=== PATIENT | female | born 1955 | race Caucasian/White ===

== ENCOUNTER → 2017-01-07 | Outpatient (REF) | payer MEDICARE ==
[~2017-01-07] MED LIST: ACET-654 PO; CIPR-250 PO; HYDR-3713 PO; LISI20TA3 PO; NEUR100C PO; NEUR300C PO; POTA10CA PO; PRAV40TA2 PO; SYNT150T PO; VITA100066 PO; VITA200015 PO
[2017-01-07 13:25] LABS: MEAN CORPUSCULAR HEMOGLOBIN 32.3 pg (27.0-33.0); MEAN CORPUSCULAR HGB CONC 32.9 g/dl (32.0-36.5); MEAN CORPUSCULAR VOLUME 98.2 fl (80.0-96.0); RED CELL DISTRIBUTION WIDTH 12.4 % (11.5-14.5); WHITE BLOOD COUNT 7.6 K/mm3 (4.0-10.0)
[2017-01-07 13:47] LABS: ALBUMIN 3.5 GM/DL (3.2-5.2); ALKALINE PHOSPHATASE 74 U/L (45-117); ALT/SGPT 117 U/L (12-78); ANION GAP 10 MEQ/L (8-16); AST/SGOT 56 U/L (15-37); BILIRUBIN,TOTAL 0.4 MG/DL (0.2-1.0); BLOOD UREA NITROGEN 11 MG/DL (7-18); CALCIUM LEVEL 9.2 MG/DL (8.8-10.2); CARBON DIOXIDE LEVEL 25 MEQ/L (21-32); CHLORIDE LEVEL 105 MEQ/L (98-107); CHOLESTEROL LEVEL 242 MG/DL (<200); CREATININE FOR GFR 0.65 MG/DL (0.55-1.02); GLOMERULAR FILTRATION RATE > 60.0 (>45); GLUCOSE, FASTING 96 MG/DL (80-110); POTASSIUM SERUM 4.1 MEQ/L (3.5-5.1); SODIUM LEVEL 140 MEQ/L (136-145); TOTAL PROTEIN 7.9 GM/DL (6.4-8.2); TRIGLYCERIDES LEVEL 158 MG/DL (<150)
== END ==
LOC: M LABDRAW1 12:29
PROVIDERS: ATTEND Nurse Practitioner Family
DX: E78.5 Hyperlipidemia, unspecified (principal); I10 Essential (primary) hypertension; E55.9 Vitamin D deficiency, unspecified

== ENCOUNTER → 2017-01-27 | Outpatient (CLI) | payer MEDICARE ==
--- NOTE | 2017-01-27 12:36 | REP ---
Bilateral lower extremity Duplex Doppler venous ultrasound: Real time compression and duplex Doppler interrogation of the bilateral lower extremity deep venous system is performed. Bilaterally, the common femoral, superficial femoral and popliteal veins are fully compressible with transducer pressure and demonstrate normal spontaneous and phasic flow, without evidence of deep venous thrombosis. Impression: No evidence of deep venous thrombosis of the bilateral lower extremity femoral popliteal venous system. Right popliteal cyst measures 4.0 x 1.5 x 2.3 cm. Signed by Sourav Diggs MD 01/27/2017 12:27 P
== END ==
LOC: M RAD 11:46
PROVIDERS: ATTEND Nurse Practitioner Family
DX: R60.0 Localized edema (principal)

== ENCOUNTER → 2017-02-10 | Outpatient (CLI) | payer MEDICARE ==
--- NOTE | 2017-02-10 08:38 | REP ---
Right upper quadrant sonography: History: Elevated liver function studies. Comparison study: January 07, 2012. Findings: Scanning through the right upper quadrant of the abdomen demonstrates a normal sized, thin-walled gallbladder without evidence of stone or polyp. Common bile duct is normal measuring 0.5 cm in greatest diameter. No focal liver lesion is seen. Liver size is normal. No pancreatic abnormality is observed. No right renal abnormality is seen. There is no evidence of ascites. The right kidney measures 13.4 x 6.4 x 5.3 cm. Impression: Negative right upper quadrant sonography. Signed by Rakesh Cordova MD 02/10/2017 08:29 A
== END ==
LOC: M RAD 06:24
PROVIDERS: ATTEND Internal Medicine Cardiovascular Disease
DX: R94.5 Abnormal results of liver function studies (principal)

== ENCOUNTER → 2017-02-22 | Outpatient (REF) | payer MEDICARE ==
[2017-02-24 10:11] LABS: HEPATITIS B SURFACE ANTIBODY POSITIVE (POSITIVE)
[2017-02-25 10:16] LABS: ALT 127 IU/L (0-40); FIBROSIS STAGE F1-F2 (.); GGT 119 IU/L (0-60); HAPTOGLOBIN 136 mg/dL (34-200); NECROINFLAM SCORE 0.67 (0.00-0.17); NECROINFLAMM GRADE A3-Severe activity (.); TOTAL BILIRUBIN 0.2 mg/dL (0.0-1.2)
== END ==
LOC: M LABDRAW1 15:32
PROVIDERS: ATTEND Nurse Practitioner Family
DX: B18.2 Chronic viral hepatitis C (principal); B16.9 Acute hepatitis B without delta-agent and without hepatic coma; B15.9 Hepatitis A without hepatic coma

== ENCOUNTER → 2017-03-10 | Outpatient (REF) | payer MEDICARE, MEDICAID | LOC: M LABDRAW1 15:51 | PROVIDERS: ATTEND Internal Medicine Infectious Disease | DX: B18.2 Chronic viral hepatitis C (principal) ==

== ENCOUNTER → 2017-03-25 | Outpatient (REF) | payer MEDICARE, MEDICAID ==
[2017-03-25 14:32] LABS: FREE T4 1.79 NG/DL (0.76-1.46)
== END ==
LOC: M LABDRAW1 12:54
PROVIDERS: ATTEND Internal Medicine Endocrinology, Diabetes & Metabolism
DX: E06.3 Autoimmune thyroiditis (principal)

== ENCOUNTER → 2017-04-22 | Outpatient (REF) | payer MEDICAID, MEDICARE ==
[~2017-04-22] MED LIST changes: -ACET-654 PO; +ACET1TAB17 PO
[2017-04-22 12:25] LABS: ALBUMIN 3.6 GM/DL (3.2-5.2); ALBUMIN/GLOBULIN RATIO 0.82 (1.00-1.93); BILIRUBIN,DIRECT 0.2 MG/DL (0.0-0.2); BILIRUBIN,TOTAL 0.5 MG/DL (0.2-1.0)
[2017-04-26 14:10] LABS: HEPATITIS C QUANTITATION HCV Not Detected IU/mL (.)
== END ==
LOC: M SFHCPLAZ 10:21
PROVIDERS: ATTEND Internal Medicine Infectious Disease
DX: B18.2 Chronic viral hepatitis C (principal)

== ENCOUNTER → 2017-06-17 | Outpatient (CLI) | payer MEDICAID, MEDICARE ==
--- NOTE | 2017-06-17 15:04 | REP ---
Left lower extremity Duplex Doppler venous ultrasound: Real time compression and duplex Doppler interrogation of the left lower extremity deep venous system is performed. The left common femoral, superficial femoral and popliteal veins are fully compressible with transducer pressure and demonstrate normal spontaneous and phasic flow, without evidence of deep venous thrombosis. Impression: No evidence of deep venous thrombosis of the left lower extremity femoral popliteal venous system. Incidental note is made of a Toney's cyst measuring 3.2 x 1.2 x 1.5 cm. Signed by Sourav Diggs MD 06/17/2017 02:57 P
== END ==
LOC: M RAD 14:22
PROVIDERS: ATTEND Orthopaedic Surgery
DX: M71.22 Synovial cyst of popliteal space [Baker], left knee (principal)

== ENCOUNTER → 2017-08-19 | Outpatient (REF) | payer MEDICARE, MEDICAID | LOC: M LABDRAW1 10:36 | PROVIDERS: ATTEND Neurological Surgery | DX: E66.9 Obesity, unspecified (principal) ==

== ENCOUNTER → 2018-01-21 | Outpatient (REF) | payer MEDICARE, MEDICAID ==
[2018-01-21 14:11] LABS: HEMATOCRIT 38.8 % (36.0-47.0); HEMOGLOBIN 12.7 g/dl (12.0-15.5); MEAN CORPUSCULAR HEMOGLOBIN 31.1 pg (27.0-33.0); MEAN CORPUSCULAR HGB CONC 32.7 g/dl (32.0-36.5); MEAN CORPUSCULAR VOLUME 95.1 fl (80.0-96.0); PLATELET COUNT, AUTOMATED 336 10^3/uL (150-450); RED BLOOD COUNT 4.08 10^6/uL (4.00-5.40); RED CELL DISTRIBUTION WIDTH 12.6 % (11.5-14.5); WHITE BLOOD COUNT 6.9 10^3/uL (4.0-10.0)
[2018-01-21 14:23] LABS: TOTAL 25(OH) VITAMIN D 31.4 NG/ML (30.0-100.0)
[2018-01-21 14:29] LABS: ALBUMIN 3.9 GM/DL (3.2-5.2); ALBUMIN/GLOBULIN RATIO 0.91 (1.00-1.93); ALKALINE PHOSPHATASE 84 U/L (45-117); ALT/SGPT 24 U/L (12-78); ANION GAP 7 MEQ/L (8-16); AST/SGOT 16 U/L (7-37); BILIRUBIN,TOTAL 0.6 MG/DL (0.2-1.0); BLOOD UREA NITROGEN 15 MG/DL (7-18); CALCIUM LEVEL 9.1 MG/DL (8.8-10.2); CARBON DIOXIDE LEVEL 25 MEQ/L (21-32); CHLORIDE LEVEL 107 MEQ/L (98-107); CHOLESTEROL LEVEL 222 MG/DL (<200); CHOLESTEROL RISK RATIO 3.827 (<5); CPK CREATINE PHOSPHOKINASE 127 U/L (26-192); CREATININE FOR GFR 0.62 MG/DL (0.55-1.30); GLOMERULAR FILTRATION RATE > 60.0 (>45); GLUCOSE, FASTING 79 MG/DL (70-100); HDL CHOLESTEROL 58 MG/DL (>40); LDL CHOLESTEROL 128.6 MG/DL (<100); NON-HDL-C 164 MG/DL; POTASSIUM SERUM 4.1 MEQ/L (3.5-5.1); SODIUM LEVEL 139 MEQ/L (136-145); TOTAL PROTEIN 8.2 GM/DL (6.4-8.2); TRIGLYCERIDES LEVEL 177 MG/DL (<150)
== END ==
LOC: M LABDRAW1 11:24
DX: E55.9 Vitamin D deficiency, unspecified (principal); E78.00 Pure hypercholesterolemia, unspecified; I10 Essential (primary) hypertension
CPT/HCPCS: 82550

== ENCOUNTER → 2018-02-11 | Outpatient (REF) | payer MEDICARE, MEDICAID ==
[2018-02-11 16:42] LABS: ALBUMIN/GLOBULIN RATIO 0.91 (1.00-1.93); ALKALINE PHOSPHATASE 109 U/L (45-117); ALT/SGPT 24 U/L (12-78); AST/SGOT 15 U/L (7-37); BILIRUBIN,DIRECT 0.1 MG/DL (0.0-0.2); BILIRUBIN,TOTAL 0.5 MG/DL (0.2-1.0); TOTAL PROTEIN 8.4 GM/DL (6.4-8.2)
[2018-02-15 08:06] LABS: ALPHA 2-MACROGLOBULIN 239 mg/dL (110-276); ALT 19 IU/L (0-40); APOLIPOPROTEIN A-1 168 mg/dL (116-209); FIBROSIS SCORE 0.19 (0.00-0.21); GGT 32 IU/L (0-60); HAPTOGLOBIN 128 mg/dL (34-200); HEPATITIS C QUANTITATION HCV Not Detected IU/mL (.); NECROINFLAM SCORE 0.06 (0.00-0.17); NECROINFLAMM GRADE A0-No activity (.); TOTAL BILIRUBIN 0.3 mg/dL (0.0-1.2)
== END ==
LOC: M LABDRAW1 11:41
DX: B18.2 Chronic viral hepatitis C (principal)
CPT/HCPCS: 84460

== ENCOUNTER → 2018-03-25 | Outpatient (REF) | payer MEDICARE, MEDICAID | LOC: M LABDRAW1 13:14 | DX: E06.3 Autoimmune thyroiditis (principal) | CPT/HCPCS: 84443 ==

== ENCOUNTER → 2018-05-31 | Outpatient (REF) | payer MEDICARE, MEDICAID ==
[2018-05-31 11:53] LABS: HEMATOCRIT 39.5 % (36.0-47.0); HEMOGLOBIN 13.3 g/dl (12.0-15.5); MEAN CORPUSCULAR HEMOGLOBIN 33.3 pg (27.0-33.0); MEAN CORPUSCULAR HGB CONC 33.7 g/dl (32.0-36.5); MEAN CORPUSCULAR VOLUME 98.8 fl (80.0-96.0); PLATELET COUNT, AUTOMATED 350 10^3/uL (150-450); WHITE BLOOD COUNT 9.7 10^3/uL (4.0-10.0)
[2018-05-31 12:25] LABS: ALBUMIN 3.8 GM/DL (3.2-5.2); ALBUMIN/GLOBULIN RATIO 0.84 (1.00-1.93); ALKALINE PHOSPHATASE 79 U/L (45-117); ALT/SGPT 25 U/L (12-78); ANION GAP 10 MEQ/L (8-16); AST/SGOT 10 U/L (7-37); BILIRUBIN,TOTAL 0.5 MG/DL (0.2-1.0); BLOOD UREA NITROGEN 21 MG/DL (7-18); CALCIUM LEVEL 8.8 MG/DL (8.8-10.2); CARBON DIOXIDE LEVEL 22 MEQ/L (21-32); CHLORIDE LEVEL 109 MEQ/L (98-107); CHOLESTEROL LEVEL 225 MG/DL (<200); CHOLESTEROL RISK RATIO 3.082 (<5); CPK CREATINE PHOSPHOKINASE 118 U/L (26-192); CREATININE FOR GFR 0.56 MG/DL (0.55-1.30); GLOMERULAR FILTRATION RATE > 60.0 (>45); GLUCOSE, FASTING 97 MG/DL (70-100); HDL CHOLESTEROL 73 MG/DL (>40); NON-HDL-C 152 MG/DL; SODIUM LEVEL 141 MEQ/L (136-145); TOTAL PROTEIN 8.3 GM/DL (6.4-8.2); TRIGLYCERIDES LEVEL 95 MG/DL (<150)
== END ==
LOC: M LABDRAW1 11:09
DX: I10 Essential (primary) hypertension (principal)
CPT/HCPCS: 82550

== ENCOUNTER → 2018-09-27 | Outpatient (REF) | payer MEDICARE, MEDICAID ==
[2018-09-27 12:36] LABS: HEMATOCRIT 38.2 % (36.0-47.0); HEMOGLOBIN 12.8 g/dl (12.0-15.5); MEAN CORPUSCULAR HEMOGLOBIN 32.8 pg (27.0-33.0); MEAN CORPUSCULAR HGB CONC 33.5 g/dl (32.0-36.5); MEAN CORPUSCULAR VOLUME 97.9 fl (80.0-96.0); PLATELET COUNT, AUTOMATED 340 10^3/uL (150-450); RED CELL DISTRIBUTION WIDTH 12.7 % (11.5-14.5); WHITE BLOOD COUNT 8.4 10^3/uL (4.0-10.0)
[2018-09-27 13:06] LABS: ALBUMIN 3.6 GM/DL (3.2-5.2); ALKALINE PHOSPHATASE 74 U/L (45-117); ALT/SGPT 22 U/L (12-78); ANION GAP 11 MEQ/L (8-16); AST/SGOT 11 U/L (7-37); BILIRUBIN,TOTAL 0.3 MG/DL (0.2-1.0); BLOOD UREA NITROGEN 15 MG/DL (7-18); CALCIUM LEVEL 8.5 MG/DL (8.8-10.2); CARBON DIOXIDE LEVEL 21 MEQ/L (21-32); CHLORIDE LEVEL 107 MEQ/L (98-107); CHOLESTEROL LEVEL 194 MG/DL (<200); CPK CREATINE PHOSPHOKINASE 102 U/L (26-192); FREE T4 1.31 NG/DL (0.76-1.46); GLOMERULAR FILTRATION RATE > 60.0 (>45); GLUCOSE, FASTING 85 MG/DL (70-100); HDL CHOLESTEROL 53 MG/DL (>40); LDL CHOLESTEROL 102 MG/DL (<100); NON-HDL-C 141 MG/DL; POTASSIUM SERUM 4.3 MEQ/L (3.5-5.1); SODIUM LEVEL 139 MEQ/L (136-145); THYROID STIMULATING HORMONE 0.314 uIU/ML (0.358-3.740); TOTAL 25(OH) VITAMIN D 55.7 NG/ML (30.0-100.0); TOTAL PROTEIN 7.6 GM/DL (6.4-8.2); TRIGLYCERIDES LEVEL 197 MG/DL (<150)
== END ==
LOC: M LABDRAW1 09:35
DX: I10 Essential (primary) hypertension (principal); E55.9 Vitamin D deficiency, unspecified
CPT/HCPCS: 82550

== ENCOUNTER → 2018-10-03 | Outpatient (REF) | payer MEDICARE, MEDICAID ==
[2018-10-03 15:56] LABS: FERRITIN 66 NG/ML (8-252); IRON (FE) 93 UG/DL (50-170); PERCENT SATURATION 27.5 % (13.2-45.0); TOTAL IRON BINDING CAPACITY 338 UG/DL (250-450)
[2018-10-03 15:56] LABS: ALBUMIN 3.5 GM/DL (3.2-5.2)
[2018-10-03 16:07] LABS: HEMOGLOBIN 12.4 g/dl (12.0-15.5)
== END ==
LOC: M LABDRAW1 11:26
DX: Z01.818 Encounter for other preprocedural examination (principal); D63.8 Anemia in other chronic diseases classified elsewhere; M17.11 Unilateral primary osteoarthritis, right knee; M25.561 Pain in right knee
CPT/HCPCS: 82040

== ENCOUNTER → 2019-01-11 | Outpatient (REF) | payer MEDICARE, MEDICAID ==
[~2019-01-11] MED LIST changes: -ACET1TAB17 PO; +ACET1TAB55 PO; +KLOR10TA76 PO; -POTA10CA PO
[2019-01-11 14:08] LABS: BASO % 0.4 % (0.0-1.0); EOS # 0.1 10^3/uL (0.0-0.50); EOS % 1.1 % (0.0-3.0); HEMATOCRIT 39.6 % (36.0-47.0); HEMOGLOBIN 12.9 g/dl (12.0-15.5); LYMPH # 3.1 10^3/uL (1.5-4.5); LYMPH % 40.8 % (24.0-44.0); MEAN CORPUSCULAR HGB CONC 32.6 g/dl (32.0-36.5); MEAN CORPUSCULAR VOLUME 95.2 fl (80.0-96.0); MONO # 0.7 10^3/uL (0.0-0.8); MONO % 8.9 % (0.0-5.0); NEUTROPHILS # 3.7 10^3/uL (1.8-7.7); NEUTROPHILS % 48.7 % (36.0-66.0); PLATELET COUNT, AUTOMATED 350 10^3/uL (150-450); RED BLOOD COUNT 4.16 10^6/uL (4.00-5.40); WHITE BLOOD COUNT 7.6 10^3/uL (4.0-10.0)
[2019-01-11 14:34] LABS: ALBUMIN 3.9 GM/DL (3.2-5.2); ALT/SGPT 21 U/L (12-78); BILIRUBIN,TOTAL 0.5 MG/DL (0.2-1.0); BLOOD UREA NITROGEN 17 MG/DL (7-18); CALCIUM LEVEL 9.1 MG/DL (8.8-10.2); CARBON DIOXIDE LEVEL 28 MEQ/L (21-32); CHLORIDE LEVEL 102 MEQ/L (98-107); CHOLESTEROL LEVEL 207 MG/DL (<200); CHOLESTEROL RISK RATIO 4.404 (<5); CPK CREATINE PHOSPHOKINASE 95 U/L (26-192); CREATININE FOR GFR 0.61 MG/DL (0.55-1.30); GLOMERULAR FILTRATION RATE > 60.0 (>45); GLUCOSE, FASTING 83 MG/DL (70-100); HDL CHOLESTEROL 47 MG/DL (>40); LDL CHOLESTEROL 119 MG/DL (<100); NON-HDL-C 160 MG/DL; SODIUM LEVEL 137 MEQ/L (136-145); TOTAL PROTEIN 8.1 GM/DL (6.4-8.2); TRIGLYCERIDES LEVEL 205 MG/DL (<150)
[2019-01-11 16:16] LABS: TOTAL 25(OH) VITAMIN D 49.9 NG/ML (30.0-100.0)
== END ==
LOC: M LAB REF 13:05
PROVIDERS: ATTEND Nurse Practitioner Family
DX: I10 Essential (primary) hypertension (principal); E78.5 Hyperlipidemia, unspecified; E55.9 Vitamin D deficiency, unspecified

== ENCOUNTER → 2019-04-24 | Outpatient (REF) | payer MEDICARE, MEDICAID ==
[2019-04-24 12:22] LABS: FREE T4 1.46 NG/DL (0.76-1.46); THYROID STIMULATING HORMONE 0.195 uIU/ML (0.358-3.740)
== END ==
LOC: M LABDRAW1 10:43
PROVIDERS: ATTEND Nurse Practitioner Family
DX: E06.3 Autoimmune thyroiditis (principal)

== ENCOUNTER → 2019-08-01 | Outpatient (REF) | payer MEDICARE, MEDICAID ==
[~2019-08-01] MED LIST changes: +LISI20TA20 PO; -LISI20TA3 PO
[2019-08-01 13:43] LABS: ALBUMIN 3.8 GM/DL (3.2-5.2); ALT/SGPT 20 U/L (12-78); BILIRUBIN,TOTAL 0.5 MG/DL (0.2-1.0); BLOOD UREA NITROGEN 15 MG/DL (7-18); CARBON DIOXIDE LEVEL 25 MEQ/L (21-32); CHLORIDE LEVEL 104 MEQ/L (98-107); CHOLESTEROL LEVEL 173 MG/DL (<200); CHOLESTEROL RISK RATIO 3.604 (<5); CPK CREATINE PHOSPHOKINASE 114 U/L (26-192); CREATININE FOR GFR 0.69 MG/DL (0.55-1.30); GLOMERULAR FILTRATION RATE > 60.0 (>45); GLUCOSE, FASTING 77 MG/DL (70-100); HDL CHOLESTEROL 48 MG/DL (>40); LDL CHOLESTEROL 81 MG/DL (<100); NON-HDL-C 125 MG/DL; POTASSIUM SERUM 4.1 MEQ/L (3.5-5.1); SODIUM LEVEL 139 MEQ/L (136-145); TOTAL PROTEIN 7.7 GM/DL (6.4-8.2); TRIGLYCERIDES LEVEL 219 MG/DL (<150)
[2019-08-01 13:44] LABS: HEMATOCRIT 37.6 % (36.0-47.0); HEMOGLOBIN 12.6 g/dl (12.0-15.5); MEAN CORPUSCULAR HGB CONC 33.5 g/dl (32.0-36.5); MEAN CORPUSCULAR VOLUME 101.3 fl (80.0-96.0); PLATELET COUNT, AUTOMATED 343 10^3/uL (150-450); RED BLOOD COUNT 3.71 10^6/uL (4.00-5.40); WHITE BLOOD COUNT 7.9 10^3/uL (4.0-10.0)
== END ==
LOC: M LABDRAW1 12:49
PROVIDERS: ATTEND Nurse Practitioner Family
DX: I10 Essential (primary) hypertension (principal); E78.5 Hyperlipidemia, unspecified

== ENCOUNTER → 2019-08-12 | Outpatient (CLI) | payer MEDICAID, MEDICARE ==
--- NOTE | 2019-08-12 12:28 | REP ---
MRI cervical spine without contrast: History: Neck pain. Increasing. Bilateral radiculopathy. No improvement with conservative measures. Comparison radiographs are from May 20, 2016 and February 19, 2016. Technique: Sagittal and axial T1 and T2-weighted scans are acquired in the usual fashion with and without fat saturation. Sequences include spin echo, turbo spin-echo, and STIR imaging sequences. MRI findings: The patient is status post ventral discectomy and fusion plating across the C6-7 intervertebral disc as seen radiographically. There is straightening of the normal cervical lordosis. Cervical cord is normal in coarse, and caliber. There is minimal motion artifact. Axial and sagittal images taken at the C2-3 intervertebral disc level demonstrate minimal central disc bulging. No other finding. At C3-4, there is a small focal central disc protrusion indenting the ventral margin of the thecal sac. No central canal stenosis or foraminal encroachment is seen. At C4-C5, there is also a small right central focal disc protrusion indenting the ventral margin of the thecal sac. No foraminal narrowing is seen no central canal stenosis is noted. At C5-6, there is a small to moderate size right paracentral focal disc protrusion indenting the thecal sac and flattening the right ventral margin of the cord. This is associated with right-sided uncovertebral spurring mild in degree. At C6-7, there is mild posterior disc spurring to the right of midline. This does not appear to deform the cord. On the left side of the cervical cord however there is a 1.5 x 1.0 cm intramedullary focus of T2 signal intensity in the left ventral cord surface consistent with a small focal myelomalacia lesion. At C7-T1, there is no significant finding. Impression: Right posterior disc protrusion at C5-6 flattening the right ventral margin of the cord and associated with right-sided uncovertebral spurring. Status post C6-7 fusion. Small focal disc protrusions at C4-5 and C3-4. There is a small focal myelomalacia lesion in the left side of the cervical cord at the C6-7 disc level. Electronically Signed by Rakesh Cordova MD 08/12/2019 12:46 P
== END ==
LOC: M RAD 09:35
PROVIDERS: ATTEND Nurse Practitioner Family
DX: M25.78 Osteophyte, vertebrae (principal); M50.222 Other cervical disc displacement at C5-C6 level; M50.221 Other cervical disc displacement at C4-C5 level; M50.220 Other cervical disc displacement, mid-cervical region, unspecified level; M50.21 Other cervical disc displacement, high cervical region; M54.12 Radiculopathy, cervical region; Z98.1 Arthrodesis status

== ENCOUNTER → 2020-03-01 | Outpatient (CLI) | payer MEDICARE ==
[2020-03-01 10:44] LABS: BASO % 0.2 % (0.0-1.0); EOS # 0.1 10^3/uL (0.0-0.5); EOS % 0.9 % (0.0-3.0); HEMATOCRIT 37.4 % (36.0-47.0); HEMOGLOBIN 12.4 g/dl (12.0-15.5); LYMPH % 37.5 % (24.0-44.0); MEAN CORPUSCULAR HGB CONC 33.2 g/dl (32.0-36.5); MEAN CORPUSCULAR VOLUME 99.5 fl (80.0-96.0); MONO # 0.7 10^3/uL (0.0-0.8); MONO % 8.8 % (0.0-5.0); NEUTROPHILS # 4.2 10^3/uL (1.5-8.5); NEUTROPHILS % 52.2 % (36.0-66.0); PLATELET COUNT, AUTOMATED 323 10^3/uL (150-450); RED BLOOD COUNT 3.76 10^6/uL (4.00-5.40); WHITE BLOOD COUNT 8.1 10^3/uL (4.0-10.0)
[2020-03-01 11:08] LABS: ALBUMIN 3.7 GM/DL (3.2-5.2); ALT/SGPT 24 U/L (12-78); C REACTIVE PROTEIN QUANTITATIV 0.52 MG/DL (0.00-0.30); CREATININE FOR GFR 0.66 MG/DL (0.55-1.30); GLOMERULAR FILTRATION RATE > 60.0 (>45)
[2020-03-01 11:22] LABS: ERYTHROCYTE SEDIMENTATION RATE 35 mm/hr (0-30)
== END ==
LOC: M LAB 10:18
PROVIDERS: ATTEND Physician Assistant Medical
DX: M06.09 Rheumatoid arthritis without rheumatoid factor, multiple sites (principal)

== ENCOUNTER → 2020-03-01 | Outpatient (CLI) | payer MEDICARE ==
[2020-03-01 10:44] LABS: HEMATOCRIT 37.5 % (36.0-47.0); HEMOGLOBIN 12.6 g/dl (12.0-15.5); MEAN CORPUSCULAR HEMOGLOBIN 33.2 pg (27.0-33.0); MEAN CORPUSCULAR HGB CONC 33.6 g/dl (32.0-36.5); MEAN CORPUSCULAR VOLUME 98.9 fl (80.0-96.0); PLATELET COUNT, AUTOMATED 320 10^3/uL (150-450); RED BLOOD COUNT 3.79 10^6/uL (4.00-5.40); WHITE BLOOD COUNT 8.4 10^3/uL (4.0-10.0)
[2020-03-01 11:26] LABS: TOTAL 25(OH) VITAMIN D 42.5 NG/ML (30.0-100.0)
[2020-03-01 11:28] LABS: ALBUMIN 3.8 GM/DL (3.2-5.2); ALT/SGPT 25 U/L (12-78); BILIRUBIN,TOTAL 0.4 MG/DL (0.2-1.0); BLOOD UREA NITROGEN 21 MG/DL (7-18); CALCIUM LEVEL 8.9 MG/DL (8.8-10.2); CARBON DIOXIDE LEVEL 25 MEQ/L (21-32); CHLORIDE LEVEL 109 MEQ/L (98-107); CHOLESTEROL LEVEL 178 MG/DL (<200); CHOLESTEROL RISK RATIO 3.787 (<5); CPK CREATINE PHOSPHOKINASE 242 U/L (26-192); CREATININE FOR GFR 0.62 MG/DL (0.55-1.30); FREE T4 1.25 NG/DL (0.76-1.46); GLOMERULAR FILTRATION RATE > 60.0 (>45); GLUCOSE, FASTING 104 MG/DL (70-100); HDL CHOLESTEROL 47 MG/DL (>40); LDL CHOLESTEROL 88 MG/DL (<100); NON-HDL-C 131 MG/DL; POTASSIUM SERUM 4.3 MEQ/L (3.5-5.1); SODIUM LEVEL 139 MEQ/L (136-145); TOTAL PROTEIN 7.8 GM/DL (6.4-8.2); TRIGLYCERIDES LEVEL 214 MG/DL (<150)
== END ==
LOC: M LAB 10:14
PROVIDERS: ATTEND Nurse Practitioner Family
DX: E55.9 Vitamin D deficiency, unspecified (principal); Z79.899 Other long term (current) drug therapy

== ENCOUNTER → 2020-04-19 | Outpatient (REF) | payer MEDICARE ==
[2020-04-19 14:28] LABS: FREE T4 1.31 NG/DL (0.76-1.46); THYROID STIMULATING HORMONE 1.26 uIU/ML (0.358-3.740)
== END ==
LOC: M LABDRWAD 12:46
PROVIDERS: ATTEND Nurse Practitioner Family
DX: E03.9 Hypothyroidism, unspecified (principal)

== ENCOUNTER → 2020-05-31 | Outpatient (REF) | payer MEDICARE ==
[2020-06-29 03:18] LABS: BASO % 0.4 % (0.0-1.0); EOS # 0.1 10^3/uL (0.0-0.5); EOS % 0.5 % (0.0-3.0); ERYTHROCYTE SEDIMENTATION RATE 34 mm/hr (0-30); HEMATOCRIT 39.5 % (36.0-47.0); HEMOGLOBIN 12.6 g/dl (12.0-15.5); LYMPH # 3.6 10^3/uL (1.5-5.0); MEAN CORPUSCULAR HEMOGLOBIN 32.7 pg (27.0-33.0); MEAN CORPUSCULAR HGB CONC 31.9 g/dl (32.0-36.5); MEAN CORPUSCULAR VOLUME 102.6 fl (80.0-96.0); MONO # 0.7 10^3/uL (0.0-0.8); MONO % 7.6 % (0.0-5.0); NEUTROPHILS # 4.8 10^3/uL (1.5-8.5); NEUTROPHILS % 52.1 % (36.0-66.0); PLATELET COUNT, AUTOMATED 421 10^3/uL (150-450); RED BLOOD COUNT 3.85 10^6/uL (4.00-5.40); WHITE BLOOD COUNT 9.2 10^3/uL (4.0-10.0)
[2020-07-16 23:59] LABS: ALBUMIN 4.1 GM/DL (3.2-5.2); ALT/SGPT 33 U/L (12-78); C REACTIVE PROTEIN QUANTITATIV 0.52 MG/DL (0.00-0.30); CREATININE FOR GFR 0.83 MG/DL (0.55-1.30); GLOMERULAR FILTRATION RATE > 60.0 (>45)
== END ==
LOC: M LABDRWAD 10:15
PROVIDERS: ATTEND Internal Medicine Rheumatology
DX: M06.09 Rheumatoid arthritis without rheumatoid factor, multiple sites (principal); Z79.899 Other long term (current) drug therapy

== ENCOUNTER → 2020-07-23 | Outpatient (REF) | payer MEDICARE ==
[2020-07-23 13:32] LABS: HEMOGLOBIN 12.4 g/dl (12.0-15.5); MEAN CORPUSCULAR HEMOGLOBIN 32.3 pg (27.0-33.0); MEAN CORPUSCULAR HGB CONC 32.6 g/dl (32.0-36.5); PLATELET COUNT, AUTOMATED 354 10^3/uL (150-450); RED BLOOD COUNT 3.84 10^6/uL (4.00-5.40); WHITE BLOOD COUNT 9.5 10^3/uL (4.0-10.0)
[2020-07-23 14:58] LABS: ALBUMIN 3.7 GM/DL (3.2-5.2); ALT/SGPT 25 U/L (12-78); BILIRUBIN,TOTAL 0.5 MG/DL (0.2-1.0); BLOOD UREA NITROGEN 14 MG/DL (7-18); CALCIUM LEVEL 9.1 MG/DL (8.8-10.2); CARBON DIOXIDE LEVEL 24 MEQ/L (21-32); CHLORIDE LEVEL 108 MEQ/L (98-107); CHOLESTEROL LEVEL 169 MG/DL (<200); CHOLESTEROL RISK RATIO 3.313 (<5); CPK CREATINE PHOSPHOKINASE 97 U/L (26-192); CREATININE FOR GFR 0.64 MG/DL (0.55-1.30); FREE T4 1.67 NG/DL (0.76-1.46); GLOMERULAR FILTRATION RATE > 60.0 (>45); GLUCOSE, FASTING 90 MG/DL (70-100); HDL CHOLESTEROL 51 MG/DL (>40); LDL CHOLESTEROL 81 MG/DL (<100); NON-HDL-C 118 MG/DL; POTASSIUM SERUM 4.3 MEQ/L (3.5-5.1); SODIUM LEVEL 140 MEQ/L (136-145); THYROID STIMULATING HORMONE 0.443 uIU/ML (0.358-3.740); TOTAL PROTEIN 7.3 GM/DL (6.4-8.2); TRIGLYCERIDES LEVEL 187 MG/DL (<150)
== END ==
LOC: M LABDRWAD 12:49 → M LAB REF 12:49
PROVIDERS: ATTEND Nurse Practitioner Family
DX: I10 Essential (primary) hypertension (principal); E78.5 Hyperlipidemia, unspecified; E03.9 Hypothyroidism, unspecified

== ENCOUNTER → 2020-12-20 | Outpatient (REF) | payer MEDICARE ==
[2020-12-20 13:43] LABS: HEMATOCRIT 39.3 % (36.0-47.0); HEMOGLOBIN 12.9 g/dl (12.0-15.5); MEAN CORPUSCULAR HEMOGLOBIN 31.6 pg (27.0-33.0); MEAN CORPUSCULAR HGB CONC 32.8 g/dl (32.0-36.5); MEAN CORPUSCULAR VOLUME 96.3 fl (80.0-96.0); PLATELET COUNT, AUTOMATED 351 10^3/uL (150-450); RED BLOOD COUNT 4.08 10^6/uL (4.00-5.40); WHITE BLOOD COUNT 7.7 10^3/uL (4.0-10.0)
[2020-12-20 14:22] LABS: ALBUMIN 3.9 GM/DL (3.2-5.2); ALT/SGPT 24 U/L (12-78); BILIRUBIN,TOTAL 0.4 MG/DL (0.2-1.0); BLOOD UREA NITROGEN 13 MG/DL (7-18); CALCIUM LEVEL 9.4 MG/DL (8.8-10.2); CARBON DIOXIDE LEVEL 25 MEQ/L (21-32); CHLORIDE LEVEL 108 MEQ/L (98-107); CHOLESTEROL LEVEL 189 MG/DL (<200); CHOLESTEROL RISK RATIO 3.937 (<5); CPK CREATINE PHOSPHOKINASE 107 U/L (26-192); CREATININE FOR GFR 0.58 MG/DL (0.55-1.30); FREE T4 1.47 NG/DL (0.76-1.46); GLOMERULAR FILTRATION RATE > 60.0 (>45); GLUCOSE, FASTING 94 MG/DL (70-100); HDL CHOLESTEROL 48 MG/DL (>40); LDL CHOLESTEROL 100 MG/DL (<100); NON-HDL-C 141 MG/DL; POTASSIUM SERUM 4.2 MEQ/L (3.5-5.1); SODIUM LEVEL 139 MEQ/L (136-145); THYROID STIMULATING HORMONE 0.142 uIU/ML (0.358-3.740); TOTAL PROTEIN 7.5 GM/DL (6.4-8.2); TRIGLYCERIDES LEVEL 204 MG/DL (<150)
== END ==
LOC: M LABDRWAD 12:37
PROVIDERS: ATTEND Nurse Practitioner Family
DX: I10 Essential (primary) hypertension (principal); E03.9 Hypothyroidism, unspecified

== ENCOUNTER → 2021-03-18 | Outpatient (CLI) | payer MEDICARE ==
[2021-03-18 13:05] LABS: HEMATOCRIT 38.3 % (36.0-47.0); HEMOGLOBIN 12.2 g/dl (12.0-15.5); MEAN CORPUSCULAR HEMOGLOBIN 31.5 pg (27.0-33.0); MEAN CORPUSCULAR HGB CONC 31.9 g/dl (32.0-36.5); PLATELET COUNT, AUTOMATED 344 10^3/uL (150-450); RED BLOOD COUNT 3.87 10^6/uL (4.00-5.40); WHITE BLOOD COUNT 9.7 10^3/uL (4.0-10.0)
[2021-03-18 13:41] LABS: ALT/SGPT 22 U/L (12-78); BILIRUBIN,TOTAL 0.5 MG/DL (0.2-1.0); BLOOD UREA NITROGEN 18 MG/DL (7-18); CALCIUM LEVEL 9.7 MG/DL (8.8-10.2); CARBON DIOXIDE LEVEL 26 MEQ/L (21-32); CHLORIDE LEVEL 108 MEQ/L (98-107); CHOLESTEROL LEVEL 170 MG/DL (<200); CPK CREATINE PHOSPHOKINASE 233 U/L (26-192); CREATININE FOR GFR 0.69 MG/DL (0.55-1.30); FREE T4 1.43 NG/DL (0.76-1.46); GLOMERULAR FILTRATION RATE > 60.0 (>45); GLUCOSE, FASTING 81 MG/DL (70-100); HDL CHOLESTEROL 50 MG/DL (>40); LDL CHOLESTEROL 93 MG/DL (<100); NON-HDL-C 120 MG/DL; POTASSIUM SERUM 4.4 MEQ/L (3.5-5.1); SODIUM LEVEL 139 MEQ/L (136-145); THYROID STIMULATING HORMONE 0.749 uIU/ML (0.358-3.740); TOTAL 25(OH) VITAMIN D 61.3 NG/ML (30.0-100.0); TOTAL PROTEIN 7.8 GM/DL (6.4-8.2); TRIGLYCERIDES LEVEL 133 MG/DL (<150)
== END ==
LOC: M LAB 12:11
PROVIDERS: ATTEND Nurse Practitioner Family
DX: I10 Essential (primary) hypertension (principal); E78.5 Hyperlipidemia, unspecified; E03.9 Hypothyroidism, unspecified; E55.9 Vitamin D deficiency, unspecified; Z79.899 Other long term (current) drug therapy

== ENCOUNTER → 2021-07-04 | Outpatient (REF) | payer MEDICARE ==
[~2021-07-04] MED LIST changes: -KLOR10TA76 PO; +POTA-136 PO
[2021-07-04 13:20] LABS: HEMATOCRIT 38.7 % (36.0-47.0); HEMOGLOBIN 12.4 g/dl (12.0-15.5); PLATELET COUNT, AUTOMATED 335 10^3/uL (150-450); RED BLOOD COUNT 3.87 10^6/uL (4.00-5.40); WHITE BLOOD COUNT 9.4 10^3/uL (4.0-10.0)
[2021-07-04 13:47] LABS: ALBUMIN 3.7 GM/DL (3.2-5.2); ALT/SGPT 25 U/L (12-78); BILIRUBIN,TOTAL 0.5 MG/DL (0.2-1.0); BLOOD UREA NITROGEN 18 MG/DL (7-18); CALCIUM LEVEL 9.1 MG/DL (8.8-10.2); CARBON DIOXIDE LEVEL 26 MEQ/L (21-32); CHLORIDE LEVEL 109 MEQ/L (98-107); CHOLESTEROL LEVEL 184 MG/DL (<200); CHOLESTEROL RISK RATIO 3.345 (<5); CPK CREATINE PHOSPHOKINASE 116 U/L (26-192); FREE T4 1.14 NG/DL (0.76-1.46); GLOMERULAR FILTRATION RATE > 60.0 (>45); GLUCOSE, FASTING 78 MG/DL (70-100); HDL CHOLESTEROL 55 MG/DL (>40); LDL CHOLESTEROL 108 MG/DL (<100); NON-HDL-C 129 MG/DL; POTASSIUM SERUM 4.6 MEQ/L (3.5-5.1); SODIUM LEVEL 140 MEQ/L (136-145); THYROID STIMULATING HORMONE 0.494 uIU/ML (0.358-3.740); TOTAL PROTEIN 7.5 GM/DL (6.4-8.2); TRIGLYCERIDES LEVEL 103 MG/DL (<150)
[2021-07-04 13:49] LABS: TOTAL 25(OH) VITAMIN D 38.9 NG/ML (30.0-100.0)
== END ==
LOC: M LABDRWAD 12:39
PROVIDERS: ATTEND Nurse Practitioner Family
DX: E55.9 Vitamin D deficiency, unspecified (principal); E03.9 Hypothyroidism, unspecified; E78.5 Hyperlipidemia, unspecified; I10 Essential (primary) hypertension

== ENCOUNTER → 2021-08-02 | Outpatient (CLI) | payer MEDICARE ==
[2021-08-02 10:46] LABS: PLATELET COUNT, AUTOMATED 319 10^3/uL (150-450)
[2021-08-02 11:06] LABS: ERYTHROCYTE SEDIMENTATION RATE 37 mm/hr (0-30)
--- NOTE | 2021-08-04 19:01 | ECGEPIP ---
[facility] Test Date: 2021-08-02 Pat Name: EMANUEL RIDDLE Department: Room: - Gender: Female Asw Specialist: lalo : 1955 Requested By: Ramiro Pinto OD Order Number: [id number] Reading MD: Chris Silver Measurements Intervals [place] Rate: 74 P: 0 MD: 126 QRS: 14 QRSD: 98 T: 45 QT: 406 QTc: 450 Interpretive Statements Normal sinus rhythm Similar to tracing done 06-22-15 Electronically Signed on 08-04-2021 19:01:20 EDT by Chris Silver
== END ==
LOC: M LAB 10:24
PROVIDERS: ATTEND Optometrist
DX: I77.6 Arteritis, unspecified (principal)

== ENCOUNTER → 2021-10-28 | Outpatient (REF) | payer MEDICARE ==
[2021-10-28 13:20] LABS: HEMATOCRIT 38.2 % (36.0-47.0); HEMOGLOBIN 12.4 g/dl (12.0-15.5); MEAN CORPUSCULAR HEMOGLOBIN 32.1 pg (27.0-33.0); MEAN CORPUSCULAR HGB CONC 32.5 g/dl (32.0-36.5); PLATELET COUNT, AUTOMATED 331 10^3/uL (150-450); RED BLOOD COUNT 3.86 10^6/uL (4.00-5.40)
[2021-10-28 14:00] LABS: ALBUMIN 3.8 GM/DL (3.2-5.2); ALT/SGPT 27 U/L (12-78); BILIRUBIN,TOTAL 0.4 MG/DL (0.2-1.0); BLOOD UREA NITROGEN 17 MG/DL (7-18); CALCIUM LEVEL 9.6 MG/DL (8.8-10.2); CARBON DIOXIDE LEVEL 29 MEQ/L (21-32); CHLORIDE LEVEL 104 MEQ/L (98-107); CHOLESTEROL LEVEL 190 MG/DL (<200); CHOLESTEROL RISK RATIO 3.958 (<5); CREATININE FOR GFR 0.63 MG/DL (0.55-1.30); FREE T4 1.18 NG/DL (0.76-1.46); GLOMERULAR FILTRATION RATE > 60.0 (>45); GLUCOSE, FASTING 98 MG/DL (70-100); HDL CHOLESTEROL 48 MG/DL (>40); LDL CHOLESTEROL 92 MG/DL (<100); NON-HDL-C 142 MG/DL; POTASSIUM SERUM 4.2 MEQ/L (3.5-5.1); SODIUM LEVEL 140 MEQ/L (136-145); THYROID STIMULATING HORMONE 0.749 uIU/ML (0.358-3.740); TOTAL PROTEIN 7.9 GM/DL (6.4-8.2); TRIGLYCERIDES LEVEL 248 MG/DL (<150)
[2021-10-28 14:03] LABS: TOTAL 25(OH) VITAMIN D 29.9 NG/ML (30.0-100.0)
== END ==
LOC: M LABDRWAD 13:03
PROVIDERS: ATTEND Nurse Practitioner Family
DX: I10 Essential (primary) hypertension (principal); E78.5 Hyperlipidemia, unspecified; E55.9 Vitamin D deficiency, unspecified; Z79.899 Other long term (current) drug therapy

== ENCOUNTER → 2022-03-27 | Outpatient (CLI) | payer MEDICARE ==
[~2022-03-27] MED LIST changes: -LISI20TA20 PO; +LISI20TA37 PO
[2022-03-27 14:11] LABS: HEMATOCRIT 37.4 % (36.0-47.0); HEMOGLOBIN 12.4 g/dl (12.0-15.5); MEAN CORPUSCULAR HEMOGLOBIN 33.2 pg (27.0-33.0); MEAN CORPUSCULAR HGB CONC 33.2 g/dl (32.0-36.5); PLATELET COUNT, AUTOMATED 329 10^3/uL (150-450); RED BLOOD COUNT 3.74 10^6/uL (4.00-5.40); WHITE BLOOD COUNT 6.9 10^3/uL (4.0-10.0)
[2022-03-27 16:46] LABS: ALBUMIN 3.6 GM/DL (3.2-5.2); ALT/SGPT 22 U/L (12-78); BILIRUBIN,TOTAL 0.4 MG/DL (0.2-1.0); BLOOD UREA NITROGEN 13 MG/DL (7-18); CALCIUM LEVEL 8.6 MG/DL (8.8-10.2); CARBON DIOXIDE LEVEL 26 MEQ/L (21-32); CHLORIDE LEVEL 110 MEQ/L (98-107); CHOLESTEROL LEVEL 140 MG/DL (<200); CHOLESTEROL RISK RATIO 3.181 (<5); GLOMERULAR FILTRATION RATE > 60.0 (>45); GLUCOSE, FASTING 97 MG/DL (70-100); HDL CHOLESTEROL 44 MG/DL (>40); LDL CHOLESTEROL 77 MG/DL (<100); NON-HDL-C 96 MG/DL; POTASSIUM SERUM 4.3 MEQ/L (3.5-5.1); SODIUM LEVEL 143 MEQ/L (136-145); TOTAL 25(OH) VITAMIN D 33.4 NG/ML (30.0-100.0); TOTAL PROTEIN 7.4 GM/DL (6.4-8.2); TRIGLYCERIDES LEVEL 95 MG/DL (<150)
== END ==
LOC: M ADAMS 09:19
PROVIDERS: ATTEND Nurse Practitioner Family
DX: E78.5 Hyperlipidemia, unspecified (principal); E55.9 Vitamin D deficiency, unspecified; I10 Essential (primary) hypertension; Z79.899 Other long term (current) drug therapy

== ENCOUNTER → 2022-07-02 | Outpatient (CLI) | payer MEDICARE ==
[2022-07-02 17:41] LABS: HEMATOCRIT 38.4 % (36.0-47.0); HEMOGLOBIN 12.2 g/dl (12.0-15.5); MEAN CORPUSCULAR HEMOGLOBIN 31.9 pg (27.0-33.0); MEAN CORPUSCULAR HGB CONC 31.8 g/dl (32.0-36.5); MEAN CORPUSCULAR VOLUME 100.5 fl (80.0-96.0); PLATELET COUNT, AUTOMATED 338 10^3/uL (150-450); RED BLOOD COUNT 3.82 10^6/uL (4.00-5.40); WHITE BLOOD COUNT 9.1 10^3/uL (4.0-10.0)
[2022-07-02 17:59] LABS: ALBUMIN 3.9 GM/DL (3.2-5.2); ALT/SGPT 25 U/L (12-78); BILIRUBIN,TOTAL 0.4 MG/DL (0.2-1.0); BLOOD UREA NITROGEN 13 MG/DL (7-18); CALCIUM LEVEL 8.9 MG/DL (8.8-10.2); CARBON DIOXIDE LEVEL 26 MEQ/L (21-32); CHLORIDE LEVEL 104 MEQ/L (98-107); CHOLESTEROL LEVEL 165 MG/DL (<200); CHOLESTEROL RISK RATIO 3.235 (<5); CREATININE FOR GFR 0.68 MG/DL (0.55-1.30); FREE T4 1.06 NG/DL (0.76-1.46); GLOMERULAR FILTRATION RATE > 60.0 (>45); GLUCOSE, FASTING 81 MG/DL (70-100); HDL CHOLESTEROL 51 MG/DL (>40); IRON (FE) 87 UG/DL (50-170); LDL CHOLESTEROL 75 MG/DL (<100); NON-HDL-C 114 MG/DL; POTASSIUM SERUM 4.2 MEQ/L (3.5-5.1); SODIUM LEVEL 136 MEQ/L (136-145); TOTAL PROTEIN 7.7 GM/DL (6.4-8.2); TRIGLYCERIDES LEVEL 197 MG/DL (<150)
[2022-07-06 14:49] LABS: VITAMIN B12 LEVEL 453 PG/ML (232-1245)
== END ==
LOC: M ADAMS 12:06
PROVIDERS: ATTEND Nurse Practitioner Family
DX: E78.5 Hyperlipidemia, unspecified (principal); I10 Essential (primary) hypertension; E03.9 Hypothyroidism, unspecified; E55.9 Vitamin D deficiency, unspecified; D64.9 Anemia, unspecified; Z79.899 Other long term (current) drug therapy

== ENCOUNTER → 2022-11-03 | Outpatient (CLI) | payer MEDICARE ==
[2022-11-03 14:00] LABS: HEMATOCRIT 37.2 % (36.0-47.0); HEMOGLOBIN 11.9 g/dl (12.0-15.5); MEAN CORPUSCULAR HEMOGLOBIN 32.4 pg (27.0-33.0); MEAN CORPUSCULAR VOLUME 101.4 fl (80.0-96.0); PLATELET COUNT, AUTOMATED 319 10^3/uL (150-450); RED BLOOD COUNT 3.67 10^6/uL (4.00-5.40)
[2022-11-03 14:24] LABS: CPK CREATINE PHOSPHOKINASE 152 U/L (34-145); THYROID STIMULATING HORMONE 3.054 uIU/ML (0.55-4.78)
[2022-11-03 14:25] LABS: TOTAL 25(OH) VITAMIN D 49.9 NG/ML (20.0-100.0)
[2022-11-03 14:57] LABS: ALBUMIN 3.7 G/DL (3.2-5.2); ALKALINE PHOSPHATASE 66 U/L (46-116); ALT/SGPT 19 U/L (7.0-40); AST/SGOT 16 U/L (<34); BILIRUBIN,TOTAL 0.5 MG/DL (0.3-1.2); BLOOD UREA NITROGEN 17 MG/DL (9-23); CALCIUM LEVEL 9.1 MG/DL (8.3-10.6); CARBON DIOXIDE LEVEL 26 MMOL/L (20-31); CHLORIDE LEVEL 104 MMOL/L (98-107); CHOLESTEROL LEVEL 188 MG/DL (<200); CREATININE FOR GFR 0.73 MG/DL (0.55-1.30); GLOMERULAR FILTRATION RATE > 60.0 (>45); GLUCOSE, FASTING 86 MG/DL (74-106); HDL CHOLESTEROL 48.2 MG/DL (>40); LDL CHOLESTEROL 104.2 MG/DL (<100); NON-HDL-C 140 MG/DL; POTASSIUM SERUM 4.6 MMOL/L (3.5-5.1); SODIUM LEVEL 139 MMOL/L (136-145); TOTAL PROTEIN 7.1 G/DL (5.7-8.2); TRIGLYCERIDES LEVEL 178 MG/DL (<150)
== END ==
LOC: M LABDRWAD 09:30
PROVIDERS: ATTEND Internal Medicine Cardiovascular Disease
DX: I10 Essential (primary) hypertension (principal); E03.9 Hypothyroidism, unspecified; E78.5 Hyperlipidemia, unspecified; E55.9 Vitamin D deficiency, unspecified; Z79.899 Other long term (current) drug therapy

== ENCOUNTER → 2023-01-05 | Outpatient (CLI) | payer MEDICARE | LOC: M RAD 07:01 | PROVIDERS: ATTEND Nurse Practitioner Family | DX: M54.16 Radiculopathy, lumbar region (principal) ==

== ENCOUNTER → 2023-04-02 | Outpatient (REF) | payer MEDICARE ==
[2023-04-02 15:19] LABS: HEMATOCRIT 36.3 % (36.0-47.0); HEMOGLOBIN 11.9 g/dl (12.0-15.5); MEAN CORPUSCULAR HEMOGLOBIN 32.6 pg (27.0-33.0); MEAN CORPUSCULAR HGB CONC 32.8 g/dl (32.0-36.5); MEAN CORPUSCULAR VOLUME 99.5 fl (80.0-96.0); PLATELET COUNT, AUTOMATED 316 10^3/uL (150-450); RED BLOOD COUNT 3.65 10^6/uL (4.00-5.40); WHITE BLOOD COUNT 8.2 10^3/uL (4.0-10.0)
[2023-04-02 15:39] LABS: CPK CREATINE PHOSPHOKINASE 164 U/L (34-145); FOLATE 19.8 NG/ML (>5.4)
[2023-04-02 15:40] LABS: ALBUMIN 3.9 G/DL (3.2-5.2); ALKALINE PHOSPHATASE 62 U/L (46-116); ALT/SGPT 22 U/L (7.0-40); AST/SGOT 18 U/L (<34); BILIRUBIN,TOTAL 0.4 MG/DL (0.3-1.2); BLOOD UREA NITROGEN 19 MG/DL (9-23); CALCIUM LEVEL 8.5 MG/DL (8.3-10.6); CARBON DIOXIDE LEVEL 26 MMOL/L (20-31); CHLORIDE LEVEL 106 MMOL/L (98-107); CHOLESTEROL LEVEL 158 MG/DL (<200); CHOLESTEROL RISK RATIO 3.42 (<5); CREATININE FOR GFR 0.59 MG/DL (0.55-1.30); GLOMERULAR FILTRATION RATE > 60.0 (>45); GLUCOSE, FASTING 89 MG/DL (74-106); HDL CHOLESTEROL 46.1 MG/DL (>40); LDL CHOLESTEROL 77.7 MG/DL (<100); NON-HDL-C 111.9 MG/DL; POTASSIUM SERUM 4.1 MMOL/L (3.5-5.1); SODIUM LEVEL 138 MMOL/L (136-145); THYROID STIMULATING HORMONE 0.838 uIU/ML (0.55-4.78); TOTAL 25(OH) VITAMIN D 27.1 NG/ML (20.0-100.0); TOTAL PROTEIN 7.1 G/DL (5.7-8.2); TRIGLYCERIDES LEVEL 171 MG/DL (<150); VITAMIN B12 LEVEL 425 PG/ML (211-911)
[2023-04-02 15:41] LABS: FREE T4 1.24 NG/DL (0.89-1.76)
== END ==
LOC: M LABDRWAD 12:42
PROVIDERS: ATTEND Nurse Practitioner Family
DX: I10 Essential (primary) hypertension (principal); E03.9 Hypothyroidism, unspecified; E55.9 Vitamin D deficiency, unspecified; D51.9 Vitamin B12 deficiency anemia, unspecified; E78.5 Hyperlipidemia, unspecified; Z79.899 Other long term (current) drug therapy

== ENCOUNTER → 2023-07-12 | Outpatient (REF) | payer MEDICARE ==
[2023-07-12 13:53] LABS: HEMATOCRIT 37.6 % (36.0-47.0); HEMOGLOBIN 12.3 g/dl (12.0-15.5); MEAN CORPUSCULAR HEMOGLOBIN 32.8 pg (27.0-33.0); MEAN CORPUSCULAR HGB CONC 32.7 g/dl (32.0-36.5); MEAN CORPUSCULAR VOLUME 100.3 fl (80.0-96.0); PLATELET COUNT, AUTOMATED 320 10^3/uL (150-450); RED BLOOD COUNT 3.75 10^6/uL (4.00-5.40); WHITE BLOOD COUNT 9.6 10^3/uL (4.0-10.0)
[2023-07-12 14:25] LABS: ALBUMIN 3.9 G/DL (3.2-5.2); ALKALINE PHOSPHATASE 71 U/L (46-116); ALT/SGPT 25 U/L (7.0-40); AST/SGOT 19 U/L (<34); BILIRUBIN,TOTAL 0.4 MG/DL (0.3-1.2); BLOOD UREA NITROGEN 14 MG/DL (9-23); CALCIUM LEVEL 9.1 MG/DL (8.3-10.6); CARBON DIOXIDE LEVEL 27 MMOL/L (20-31); CHLORIDE LEVEL 105 MMOL/L (98-107); CHOLESTEROL LEVEL 167 MG/DL (<200); CHOLESTEROL RISK RATIO 3.37 (<5); CPK CREATINE PHOSPHOKINASE 183 U/L (34-145); CREATININE FOR GFR 0.58 MG/DL (0.55-1.30); FREE T4 1.59 NG/DL (0.89-1.76); GLOMERULAR FILTRATION RATE > 60.0 (>45); GLUCOSE, FASTING 90 MG/DL (74-106); HDL CHOLESTEROL 49.5 MG/DL (>40); LDL CHOLESTEROL 98.5 MG/DL (<100); NON-HDL-C 117.5 MG/DL; POTASSIUM SERUM 4.7 MMOL/L (3.5-5.1); SODIUM LEVEL 140 MMOL/L (136-145); TOTAL PROTEIN 7.4 G/DL (5.7-8.2); TRIGLYCERIDES LEVEL 95 MG/DL (<150)
[2023-07-12 14:26] LABS: THYROID STIMULATING HORMONE 0.564 uIU/ML (0.55-4.78); TOTAL 25(OH) VITAMIN D 54.2 NG/ML (20.0-100.0)
== END ==
LOC: M LABDRWAD 12:21
PROVIDERS: ATTEND Nurse Practitioner Family
DX: I10 Essential (primary) hypertension (principal); E78.5 Hyperlipidemia, unspecified; E55.9 Vitamin D deficiency, unspecified; Z79.899 Other long term (current) drug therapy

== ENCOUNTER 2023-12-02 07:34 | Day surgery (SDC) | payer MEDICARE ==
[~2023-12-02] VITALS: Ht 157.5 cm; Wt 105.0 kg
[~2023-12-02 07:34] MED LIST changes: +ACET1TAB37 PO; +ALEV220T22 PO; +AMLO10TA PO; +ANAS1TAB2 PO; +BYST1TAB PO; +CYAN500T20 PO; +GABA-282 PO; +LEVO137T2 PO; +LIDOCAINE 2% 100MG/5ML SDV (FOR ANES.) As Ordered ONE; +LISI5TAB11 PO; +LIVA2TAB PO; +PARO20TA4 PO; +VITA1CAP25 PO; +propofoL 200 MG/20 ML VIAL As Ordered ONE
[2023-12-02] MEDS: NS 1,000 ML IV ONE (07:59)
[2023-12-02] MEDS ORDERED: ePHEDrine SULFATE 25 MG/5 ML(5MG/ML) SYRINGE As Ordered ONE (08:39)
[2023-12-02 08:57] VITALS: TEMP 97.4
[2023-12-02 09:15] VITALS: BP 159/71; O2SAT 98
== END 2023-12-02 09:21 | disposition home or self-care (01) ==
LOC: M OPP 07:34
PROVIDERS: ATTEND Surgery
DX: Z12.11 Encounter for screening for malignant neoplasm of colon (principal); D12.6 Benign neoplasm of colon, unspecified; F17.200 Nicotine dependence, unspecified, uncomplicated; Z79.1 Long term (current) use of non-steroidal anti-inflammatories (NSAID); Z79.890 Hormone replacement therapy; Z79.891 Long term (current) use of opiate analgesic; Z79.899 Other long term (current) drug therapy; Z88.5 Allergy status to narcotic agent
CPT/HCPCS: 88305; G0121

== ENCOUNTER → 2024-02-28 | Outpatient (REF) | payer MEDICARE ==
[~2024-02-28] MED LIST changes: -LIDOCAINE 2% 100MG/5ML SDV (FOR ANES.) As Ordered ONE; -propofoL 200 MG/20 ML VIAL As Ordered ONE
[2024-02-28 14:18] LABS: BASO % 0.3 % (0.0-1.0); EOS # 0.1 10^3/uL (0.0-0.5); EOS % 0.8 % (0.0-3.0); HEMATOCRIT 38.6 % (36.0-47.0); HEMOGLOBIN 12.6 g/dl (12.0-15.5); LYMPH # 3.7 10^3/uL (1.5-5.0); MEAN CORPUSCULAR HEMOGLOBIN 32.7 pg (27.0-33.0); MEAN CORPUSCULAR HGB CONC 32.6 g/dl (32.0-36.5); MEAN CORPUSCULAR VOLUME 100.3 fl (80.0-96.0); MONO # 0.7 10^3/uL (0.0-0.8); MONO % 7.8 % (2.0-8.0); NEUTROPHILS # 4.7 10^3/uL (1.5-8.5); NEUTROPHILS % 50.9 % (36.0-66.0); PLATELET COUNT, AUTOMATED 345 10^3/uL (150-450); RED BLOOD COUNT 3.85 10^6/uL (4.00-5.40); WHITE BLOOD COUNT 9.1 10^3/uL (4.0-10.0)
[2024-02-28 14:34] LABS: ALBUMIN 3.4 G/DL (3.2-5.2); ALKALINE PHOSPHATASE 67 U/L (46-116); ALT/SGPT 25 U/L (7.0-40); AST/SGOT 14 U/L (<34); BILIRUBIN,TOTAL 0.6 MG/DL (0.3-1.2); BLOOD UREA NITROGEN 16 MG/DL (9-23); CALCIUM LEVEL 8.8 MG/DL (8.3-10.6); CARBON DIOXIDE LEVEL 24 MMOL/L (20-31); CHLORIDE LEVEL 106 MMOL/L (98-107); CHOLESTEROL LEVEL 179 MG/DL (<200); CPK CREATINE PHOSPHOKINASE 146 U/L (34-145); CREATININE FOR GFR 0.57 MG/DL (0.55-1.30); GLOMERULAR FILTRATION RATE > 60.0 (>45); GLUCOSE, FASTING 83 MG/DL (74-106); HDL CHOLESTEROL 51.1 MG/DL (>40); LDL CHOLESTEROL 93.7 MG/DL (<100); NON-HDL-C 127.9 MG/DL; POTASSIUM SERUM 4.4 MMOL/L (3.5-5.1); SODIUM LEVEL 138 MMOL/L (136-145); TOTAL PROTEIN 7.4 G/DL (5.7-8.2); TRIGLYCERIDES LEVEL 171 MG/DL (<150)
[2024-02-28 14:36] LABS: FREE T4 1.51 NG/DL (0.89-1.76); THYROID STIMULATING HORMONE 0.577 uIU/ML (0.55-4.78)
== END ==
LOC: M LABDRWAD 12:53
PROVIDERS: ATTEND Nurse Practitioner Family
DX: I10 Essential (primary) hypertension (principal); E55.9 Vitamin D deficiency, unspecified; E03.9 Hypothyroidism, unspecified

== ENCOUNTER → 2024-03-03 | Outpatient (CLI) | payer MEDICARE | LOC: M RAD 11:41 | PROVIDERS: ATTEND Nurse Practitioner Family | DX: M25.512 Pain in left shoulder (principal) ==

== ENCOUNTER → 2024-05-30 | Outpatient (REF) | payer MEDICARE ==
[2024-05-30 14:59] LABS: BASO % 0.4 % (0.0-1.0); EOS # 0.1 10^3/uL (0.0-0.5); HEMATOCRIT 37.7 % (36.0-47.0); HEMOGLOBIN 12.6 g/dl (12.0-15.5); LYMPH # 3.7 10^3/uL (1.5-5.0); LYMPH % 39.8 % (24.0-44.0); MEAN CORPUSCULAR HEMOGLOBIN 33.6 pg (27.0-33.0); MEAN CORPUSCULAR HGB CONC 33.4 g/dl (32.0-36.5); MEAN CORPUSCULAR VOLUME 100.5 fl (80.0-96.0); MONO # 0.8 10^3/uL (0.0-0.8); MONO % 8.6 % (2.0-8.0); NEUTROPHILS # 4.6 10^3/uL (1.5-8.5); PLATELET COUNT, AUTOMATED 332 10^3/uL (150-450); RED BLOOD COUNT 3.75 10^6/uL (4.00-5.40); WHITE BLOOD COUNT 9.2 10^3/uL (4.0-10.0)
[2024-05-30 15:33] LABS: CPK CREATINE PHOSPHOKINASE 137 U/L (34-145)
[2024-05-30 15:34] LABS: ALBUMIN 3.6 G/DL (3.2-5.2); ALKALINE PHOSPHATASE 67 U/L (46-116); ALT/SGPT 20 U/L (7.0-40); AST/SGOT 13 U/L (<34); BILIRUBIN,TOTAL 0.5 MG/DL (0.3-1.2); BLOOD UREA NITROGEN 15 MG/DL (9-23); CALCIUM LEVEL 8.9 MG/DL (8.3-10.6); CARBON DIOXIDE LEVEL 25 MMOL/L (20-31); CHLORIDE LEVEL 106 MMOL/L (98-107); CHOLESTEROL LEVEL 183 MG/DL (<200); CHOLESTEROL RISK RATIO 4.17 (<5); CREATININE FOR GFR 0.55 MG/DL (0.55-1.30); GLOMERULAR FILTRATION RATE > 60.0 (>45); GLUCOSE, FASTING 84 MG/DL (74-106); HDL CHOLESTEROL 43.8 MG/DL (>40); LDL CHOLESTEROL 104.2 MG/DL (<100); NON-HDL-C 139.2 MG/DL; POTASSIUM SERUM 4.2 MMOL/L (3.5-5.1); SODIUM LEVEL 138 MMOL/L (136-145); TOTAL PROTEIN 7.4 G/DL (5.7-8.2); TRIGLYCERIDES LEVEL 175 MG/DL (<150)
[2024-05-30 15:35] LABS: THYROID STIMULATING HORMONE 0.158 uIU/ML (0.55-4.78); TOTAL 25(OH) VITAMIN D 47.6 NG/ML (20.0-100.0)
[2024-05-30 15:36] LABS: VITAMIN B12 LEVEL > 2000 PG/ML (211-911)
== END ==
LOC: M LABDRWAD 13:29
PROVIDERS: ATTEND Nurse Practitioner Family
DX: E78.5 Hyperlipidemia, unspecified (principal); I10 Essential (primary) hypertension; E03.9 Hypothyroidism, unspecified; D51.9 Vitamin B12 deficiency anemia, unspecified

== ENCOUNTER → 2024-08-14 | Outpatient (REF) | payer MEDICARE ==
[~2024-08-14] MED LIST changes: +GABA-1172 PO; -GABA-282 PO
[2024-08-14 13:53] LABS: BASO % 0.4 % (0.0-1.0); EOS # 0.1 10^3/uL (0.0-0.5); EOS % 0.7 % (0.0-3.0); HEMATOCRIT 36.7 % (36.0-47.0); HEMOGLOBIN 12.1 g/dl (12.0-15.5); LYMPH # 3.2 10^3/uL (1.5-5.0); MEAN CORPUSCULAR HEMOGLOBIN 33.3 pg (27.0-33.0); MEAN CORPUSCULAR VOLUME 101.1 fl (80.0-96.0); MONO # 0.8 10^3/uL (0.0-0.8); MONO % 9.4 % (2.0-8.0); NEUTROPHILS # 3.9 10^3/uL (1.5-8.5); NEUTROPHILS % 49.1 % (36.0-66.0); PLATELET COUNT, AUTOMATED 310 10^3/uL (150-450); RED BLOOD COUNT 3.63 10^6/uL (4.00-5.40)
[2024-08-14 13:59] LABS: TOTAL 25(OH) VITAMIN D 49.8 NG/ML (20.0-100.0)
[2024-08-14 14:01] LABS: VITAMIN B12 LEVEL 1105 PG/ML (211-911)
[2024-08-14 14:05] LABS: ALBUMIN 3.8 G/DL (3.2-5.2); ALKALINE PHOSPHATASE 66 U/L (46-116); ALT/SGPT 22 U/L (7.0-40); AST/SGOT 13 U/L (<34); BILIRUBIN,TOTAL 0.5 MG/DL (0.3-1.2); BLOOD UREA NITROGEN 18 MG/DL (9-23); CALCIUM LEVEL 9.5 MG/DL (8.3-10.6); CARBON DIOXIDE LEVEL 26 MMOL/L (20-31); CHLORIDE LEVEL 109 MMOL/L (98-107); CHOLESTEROL LEVEL 183 MG/DL (<200); CPK CREATINE PHOSPHOKINASE 213 U/L (34-145); CREATININE FOR GFR 0.59 MG/DL (0.55-1.30); GLOMERULAR FILTRATION RATE > 60.0 (>45); GLUCOSE, FASTING 88 MG/DL (74-106); HDL CHOLESTEROL 43.5 MG/DL (>40); LDL CHOLESTEROL 107.3 MG/DL (<100); NON-HDL-C 139.5 MG/DL; POTASSIUM SERUM 4.1 MMOL/L (3.5-5.1); SODIUM LEVEL 139 MMOL/L (136-145); TOTAL PROTEIN 7.5 G/DL (5.7-8.2); TRIGLYCERIDES LEVEL 161 MG/DL (<150)
== END ==
LOC: M LABDRWAD 12:46
PROVIDERS: ATTEND Nurse Practitioner Family
DX: E78.5 Hyperlipidemia, unspecified (principal); E55.9 Vitamin D deficiency, unspecified; E53.8 Deficiency of other specified B group vitamins

== ENCOUNTER → 2025-01-19 | Outpatient (REF) | payer MEDICARE ==
[2025-01-19 13:44] LABS: BASO % 0.4 % (0.0-1.0); EOS # 0.1 10^3/uL (0.0-0.5); EOS % 1.1 % (0.0-3.0); HEMATOCRIT 38.4 % (36.0-47.0); HEMOGLOBIN 12.5 g/dl (12.0-15.5); LYMPH # 3.9 10^3/uL (1.5-5.0); LYMPH % 43.7 % (24.0-44.0); MEAN CORPUSCULAR HEMOGLOBIN 32.6 pg (27.0-33.0); MEAN CORPUSCULAR HGB CONC 32.6 g/dl (32.0-36.5); MONO # 0.7 10^3/uL (0.0-0.8); MONO % 8.1 % (2.0-8.0); NEUTROPHILS # 4.1 10^3/uL (1.5-8.5); NEUTROPHILS % 46.5 % (36.0-66.0); PLATELET COUNT, AUTOMATED 328 10^3/uL (150-450); RED BLOOD COUNT 3.84 10^6/uL (4.00-5.40); WHITE BLOOD COUNT 8.9 10^3/uL (4.0-10.0)
[2025-01-19 14:15] LABS: ALBUMIN 3.6 G/DL (3.2-5.2); ALKALINE PHOSPHATASE 67 U/L (35-104); ALT/SGPT 31 U/L (7.0-40); AST/SGOT 22 U/L (<34); BILIRUBIN,TOTAL 0.5 MG/DL (0.3-1.2); BLOOD UREA NITROGEN 15 MG/DL (9-23); CALCIUM LEVEL 8.7 MG/DL (8.3-10.6); CARBON DIOXIDE LEVEL 25 MMOL/L (20-31); CHLORIDE LEVEL 103 MMOL/L (98-107); CHOLESTEROL LEVEL 192 MG/DL (<200); CHOLESTEROL RISK RATIO 3.73 (<5); CPK CREATINE PHOSPHOKINASE 131 U/L (34-145); CREATININE FOR GFR 0.56 MG/DL (0.55-1.30); GLOMERULAR FILTRATION RATE > 60.0 (>45); GLUCOSE, FASTING 91 MG/DL (74-106); HDL CHOLESTEROL 51.4 MG/DL (>40); LDL CHOLESTEROL 91.4 MG/DL (<100); NON-HDL-C 140.6 MG/DL; SODIUM LEVEL 138 MMOL/L (136-145); TOTAL PROTEIN 7.5 G/DL (5.7-8.2); TRIGLYCERIDES LEVEL 246 MG/DL (<150)
== END ==
LOC: M LABDRWAD 13:23
PROVIDERS: ATTEND Nurse Practitioner Family
DX: E78.5 Hyperlipidemia, unspecified (principal)

== ENCOUNTER → 2025-02-13 | Outpatient (CLI) | payer MEDICARE ==
[~2025-02-13] MED LIST changes: +PROHANCE 279.3MG/ML 5ML VIAL ONE
[2025-02-13 14:21] LABS: BLOOD UREA NITROGEN 16 MG/DL (9-23); CREATININE FOR GFR 0.64 MG/DL (0.55-1.30); GLOMERULAR FILTRATION RATE > 90.0 (>45)
== END ==
LOC: M PLAIMG 10:59
PROVIDERS: ATTEND Pain Medicine Interventional Pain Medicine
DX: M54.2 Cervicalgia (principal)
CPT/HCPCS: 36415; 72156; 82565; 84520; A9576

== ENCOUNTER 2025-08-06 17:13 | Emergency (ER) | payer MEDICARE ==
[~2025-08-06] VITALS: Ht 157.5 cm; Wt 102.0 kg
[~2025-08-06 17:13] MED LIST changes: +ACET-1592 PO; -ACET1TAB37 PO; +AMLO-751 PO; -AMLO10TA PO; -PRAV40TA2 PO; +PRAV40TA85 PO; -PROHANCE 279.3MG/ML 5ML VIAL ONE
[2025-08-06] MEDS ORDERED: LIVA4TAB (17:57)
[2025-08-06] MEDS ORDERED: ENTR1TAB (17:57)
[2025-08-06 18:08] LABS: BASO # 0.0 10^3/uL (0.0-0.2); BASO % 0.2 % (0.0-1.0); EOS # 0.2 10^3/uL (0.0-0.5); EOS % 2.6 % (0.0-3.0); LYMPH # 3.7 10^3/uL (1.5-5.0); LYMPH % 44.7 % (24.0-44.0); MONO # 0.6 10^3/uL (0.0-0.8); MONO % 7.7 % (2.0-8.0); NEUTROPHILS # 3.6 10^3/uL (1.5-8.5); NEUTROPHILS % 44.6 % (36.0-66.0); PLATELET COUNT, AUTOMATED 332 10^3/uL (150-450)
[2025-08-06 18:28] LABS: CK-MB VALUE MASS 2.5 NG/ML (<3.6)
[2025-08-06 18:29] LABS: CALCIUM LEVEL 8.7 MG/DL (8.3-10.6); CARBON DIOXIDE LEVEL 24 MMOL/L (20-31); CHLORIDE LEVEL 108 MMOL/L (98-107); CREATININE FOR GFR 0.69 MG/DL (0.55-1.30); GLOMERULAR FILTRATION RATE > 90.0 (>45); POTASSIUM SERUM 4.4 MMOL/L (3.5-5.1); SODIUM LEVEL 144 MMOL/L (136-145)
[2025-08-06 18:31] LABS: CPK CREATINE PHOSPHOKINASE 149 U/L (34-145); MB/CK RELATIVE INDEX 1.67 (< OR =4)
[2025-08-06 19:26] LABS: CK-MB VALUE MASS 1.5 NG/ML (<3.6)
[2025-08-06 19:30] LABS: CPK CREATINE PHOSPHOKINASE 140 U/L (34-145); MB/CK RELATIVE INDEX 1.07 (< OR =4)
[2025-08-06 21:01] VITALS: BP 123/56
[2025-08-06 21:16] VITALS: TEMP 98.5; O2SAT 95
== END 2025-08-06 21:23 | disposition home or self-care (01) ==
LOC: M ED 17:13
DX: R07.9 Chest pain, unspecified (principal); I10 Essential (primary) hypertension; E78.5 Hyperlipidemia, unspecified; F17.210 Nicotine dependence, cigarettes, uncomplicated; F12.10 Cannabis abuse, uncomplicated; F10.10 Alcohol abuse, uncomplicated; Z88.5 Allergy status to narcotic agent; Z79.1 Long term (current) use of non-steroidal anti-inflammatories (NSAID); Z79.899 Other long term (current) drug therapy

== ENCOUNTER → 2025-10-23 | Outpatient (REF) | payer MEDICARE ==
[~2025-10-23] MED LIST changes: +ENTR1TAB; +LIVA4TAB
[2025-10-23 14:13] LABS: ALT/SGPT 16 U/L (7.0-40); AST/SGOT 14 U/L (<34); CALCIUM LEVEL 9.5 MG/DL (8.3-10.6); CARBON DIOXIDE LEVEL 27 MMOL/L (20-31); CHLORIDE LEVEL 105 MMOL/L (98-107); CHOLESTEROL LEVEL 207 MG/DL (<200); CHOLESTEROL RISK RATIO 3.86 (<5); CREATININE FOR GFR 0.59 MG/DL (0.55-1.30); GLOMERULAR FILTRATION RATE > 90.0 (>39); LDL CHOLESTEROL 115.1 MG/DL (<100); NON-HDL-C 153.5 MG/DL; POTASSIUM SERUM 4.3 MMOL/L (3.5-5.1); SODIUM LEVEL 138 MMOL/L (136-145); TRIGLYCERIDES LEVEL 192 MG/DL (<150)
[2025-10-23 14:14] LABS: CPK CREATINE PHOSPHOKINASE 92 U/L (34-145)
[2025-10-23 14:16] LABS: FREE T4 1.27 NG/DL (0.89-1.76)
[2025-10-23 14:19] LABS: BASO # 0.1 10^3/uL (0.0-0.2); BASO % 0.5 % (0.0-1.0); EOS # 0.4 10^3/uL (0.0-0.5); EOS % 4.0 % (0.0-3.0); LYMPH # 3.7 10^3/uL (1.5-5.0); LYMPH % 38.7 % (24.0-44.0); MONO # 0.7 10^3/uL (0.0-0.8); MONO % 6.9 % (2.0-8.0); NEUTROPHILS # 4.7 10^3/uL (1.5-8.5); NEUTROPHILS % 49.7 % (36.0-66.0); PLATELET COUNT, AUTOMATED 315 10^3/uL (150-450)
== END ==
LOC: M LABDRWAD 13:15
PROVIDERS: ATTEND Nurse Practitioner Family
DX: I10 Essential (primary) hypertension (principal); E03.9 Hypothyroidism, unspecified; E78.5 Hyperlipidemia, unspecified